=== PATIENT | female | born 2005 | race Caucasian/White ===

== ENCOUNTER 2025-04-13 15:06 | Observation (INO) | payer BC, SELFPAY ==
[2025-04-13] VITALS (14 sets, daily range): BP systolic 122–134; BP diastolic 76–89; PULSE 92–117; RESP 18–98; TEMP 37.1; O2SAT 90–99; BMI 29.0
--- NOTE | 2025-04-13 15:29 | XR_ITS ---
Examination: Complete OB ultrasound greater than 14 weeks Date and time of exam: April 13, 2025 1618 hours INDICATIONS: Pelvic pain and leaking amniotic fluid beginning 3 days ago Findings: Viable intrauterine single fetus with single amniotic sac presentation cephalic Cardiac motion 141 BPM Placenta anterior grade 2 Umbilical cord insertion 3 vessel seen Amniotic fluid index 12.4 cm spine maternal right Cervix 3.5 cm Ovaries obscured by bowel gas. Composite estimated gestational age based on BPD, head circumference, abdominal circumference, femur length is 32 weeks 5 days Estimated weight 1870 g. Survey of intracranial anatomy, spinal anatomy, abdominal anatomy, four-chamber heart performed with no abnormalities identified. Impression: Viable intrauterine gestation cephalic presentation.
[2025-04-13 15:43] LABS: ROM Kit Exp Date# 041527; ROM Kit Lot # 58102387; ROM Swab Mixed By: CL; Swb Mxed in Solvent 1 min? Yes
[2025-04-13 15:44] LABS: Rupture of Fetal Membranes Negative (Negative)
[2025-04-13 15:45] LABS: Bacteria,Urine Rare; Bilirubin,Urine Negative (Negative); Blood,Urine Negative (Negative); Collection Type, Urine Clean Catch; Color,Urine Lt-Yellow (Lt Yel-Yel); Culture Indicated,Urine Not Indicated; Glucose, Urine Negative (Negative); Ketones,Urine Negative (Negative); Leukocyte Esterase,Urine Positive (Negative); Nitrite,Urine Negative (Negative); PH,Urine 7.0 (5.0-7.0); Protein,Urine Negative (Neg - Trace); RBC,Urine 1 /hpf (0-3); Specific Gravity,Urine 1.001 (1.001-1.035); Squamous Epithelial Cell,Urine < 1 /hpf (0-5); Urobilinogen,Urine Negative mg/dL (0.0-1.0); WBC,Urine 1 /hpf (0-5)
[2025-04-13 15:58] LABS: Clarity,Urine Hazy (Clear/Hazy)
[2025-04-14 10:39] LABS: BVAG Candida Positive (Negative); Bacterial Vaginosis Markers Negative (Negative); Candida glabrata Negative (Negative); Candida krusei PCR Negative (Negative); Trichomonas Negative (Negative)
== END 2025-04-13 17:15 | disposition home or self-care (01) ==
PROVIDERS: Admitting Provider Obstetrics & Gynecology; Visit Provider Obstetrics & Gynecology
DX: Z34.03 Encounter for supervision of normal first pregnancy, third trimester (principal); Z3A.33 33 weeks gestation of pregnancy
CPT/HCPCS: 59025; 59899; 76805; 81001; 81514; 84112

== ENCOUNTER 2025-06-06 08:25 | Observation (INO) | payer BC, SELFPAY ==
[2025-06-06] VITALS (7 sets, daily range): BP systolic 123; BP diastolic 74; PULSE 95–109; RESP 20–98; TEMP 36.5; O2SAT 96–98; BMI 31.5
== END 2025-06-06 09:15 | disposition home or self-care (01) ==
PROVIDERS: Admitting Provider Specialist; Visit Provider Specialist
DX: O47.1 False labor at or after 37 completed weeks of gestation (principal); O46.93 Antepartum hemorrhage, unspecified, third trimester; Z3A.40 40 weeks gestation of pregnancy
CPT/HCPCS: 59025; 59899

== ENCOUNTER 2025-06-07 14:15 | Inpatient (IN) | payer BC, MEDICAID, SELFPAY ==
[2025-06-07] VITALS (77 sets, daily range): BP systolic 106–140; BP diastolic 58–89; PULSE 94–249; RESP 20–98; O2SAT 64–100; BMI 30.9
--- NOTE | 2025-06-07 08:16 | ESHP_ITS ---
RE: BECCA SALDANA : 2005 DATE OF ADMISSION: 06/07/2025 HISTORY OF PRESENT ILLNESS: This is a 20-year-old 1, para 0 with due date of 05/31 with intrauterine at 41 weeks on 06/07. She reports regular contractions. She denies any leaking or bleeding. She reports normal movement. MEDICATIONS: 1. multivitamin. 2. Flonase nasal spray p.r.n. allergies SOCIAL HISTORY: She denies any alcohol, drug use, or smoking. PAST MEDICAL HISTORY: Allergic rhinitis. FAMILY HISTORY: Denies. PAST SURGICAL HISTORY: Denies. ALLERGIES: NO KNOWN DRUG ALLERGIES. REVIEW OF SYSTEMS: She denies any chest pain, palpitations, cough, fever, shortness of breath, or lower extremity pain. She denies any headache, change in vision or right upper quadrant pain. PHYSICAL EXAMINATION: VITAL SIGNS: Blood pressure is 110/70, heart rate 88, respirations 18, temperature 98.8. HEENT: Oropharynx and sclerae are clear. LUNGS: Clear to auscultation bilaterally. HEART: Regular rate and rhythm. ABDOMEN: Gravid, term size consistent with estimated weight 8 pounds. PELVIC: See RN notes. EXTREMITIES: Nontender. SKIN: No gross rashes or lesions. NEUROLOGIC: No focal deficit. ASSESSMENT AND PLAN: Intrauterine at 41 weeks and 0 days on 06/07. Early labor Anticipate spontaneous vaginal delivery. DT: 11:24:17 TT: 12:36:00 Ref: [id number] - TID: [id number] [facility]
[2025-06-07] MEDS: RINGERS LACTATED 1000 ML 1,000 ML 100 ML IV ×3 (15:38→22:40)
[2025-06-07 16:07] LABS: Basophils # (Auto) 0.1 Thou/mm3 (0.0-0.2); Basophils % (Auto) 0 % (0-2.5); Eosinophils # (Auto) 0.3 Thou/mm3 (0.0-0.5); Eosinophils % (Auto) 2 % (0-10); Hematocrit 40.8 % (36.0-46.0); Hemoglobin 14.2 g/dL (12.0-16.0); Immature Granulocytes Auto 0.09 Thou/mm3 (0.00-0.00); Lymphocytes # (Auto) 1.8 Thou/mm3 (1.0-4.8); Lymphocytes % (Auto) 10 % (10-50); Mean Corpuscular HGB Conc 34.8 g/dl (31.0-37.0); Mean Corpuscular Hemoglobin 31.0 pg (25.0-35.0); Mean Corpuscular Volume 89 fL (80-100); Monocytes # (Auto) 0.9 Thou/mm3 (0.0-0.8); Monocytes % (Auto) 5 % (0-12); Neutrophils # (Auto) 14.5 Thou/mm3 (1.8-7.7); Neutrophils % (Auto) 82 % (37-80); Nucleated Red Blood Cell # 0.00 Thou/mm3 (0.00-0.00); Nucleated Red Blood Cell % 0 /100 WBC (0); Platelet Count 173 Thou/mm3 (140-440); RDW Standard Deviation 41.1 fL (36.4-46.3); Red Blood Count 4.58 Miln/mm3 (4.00-5.20); White Blood Count 17.6 Thou/mm3 (4.5-11.0)
[2025-06-07 16:49] LABS: Syphilis Nonreactive (Nonreactive)
[2025-06-08] VITALS (124 sets, daily range): BP systolic 96–178; BP diastolic 46–131; PULSE 88–138; RESP 16–18; TEMP 36.4–37.1; O2SAT 94–99
[2025-06-08] MEDS: RINGERS LACTATED 1000 ML 1,000 ML 100 ML IV (04:06)
[2025-06-08] MEDS: MINERAL OIL 30 ML UDC TOP (05:58)
[2025-06-08] MEDS: BENZO/LANO/ALOE (Dermoplast) 60 GM CAN 1 SPRAY TOP (05:59)
[2025-06-08] MEDS: OXYTOCIN in NS 20 units 20 UNIT/1,000 ML BAG 125 UNIT IV (06:09)
[2025-06-08] MEDS: IBUPROFEN TAB 400 MG TABLET 800 MG PO (06:22)
--- NOTE | 2025-06-08 06:33 | PD.LDDS ---
DS: Providers Provider Date of admission: 06/07/25 15:04 Primary care physician: Carlos Alberto Schumacher MD Admitting Provider: Torey Gonzalez MD Attending Provider on Admission: Torey Gonzalez MD Attending Provider on DC: Torey Gonzalez MD Discharging Provider: Torey Gonzalez MD DS: Diagnosis Problem List Completed Was Problem List Reviewed/Reconciled?: Yes Summary/Hosp Course Peripartum Data Delivery Method: Normal Vaginal Delivery Episiotomy Description: None Time Spent with Patient Time attestation: Total time spent providing and/or coordinating discharge services: Exam Vital Signs Temp Pulse Resp BP Pulse Ox O2 Del Method 98.3 F 122 H 16 116/80 99 Room Air 06/08/25 00:59 06/08/25 05:25 06/08/25 00:59 06/08/25 05:25 06/08/25 05:53 06/08/25 00:59 Discharge Plan Plan Patient Disposition: HOME (Self Care) Patient condition on transfer: Stable Prescriptions/Referrals Prescriptions/Med Rec: New amoxicillin-pot clavulanate 875-125 mg tablet 1 tab PO Q12H Qty: 10 0RF ibuprofen 600 mg tablet 600 mg PO Q6H PRN (Reason: fever or pain) Qty: 30 0RF Continued vitamin no.45-iron-FA 28 mg iron- 1 mg tablet,chewable 1 tab PO .QD Referrals: Carlos Alberto Schumacher MD [Primary Care Provider, Family Practice] Patient/Caregiver Discharge Instructions Discharge Activity: activity as tolerated Other Discharge Activity Instructions:: Follow up office 6 weeks. Print Language: Kittitian Stand Alone Forms: [facility] Award Info., Patient Portal Info Letter Discharge Order Discharge Orders: Discharge (Routine); Ordered 06/10/25 Ordered By: Torey Gonzalez Planned Discharge Date 06/10/25
--- NOTE | 2025-06-08 08:00 | PC.NURSE ---
RN attempted to get up pt, pt unable to bare weight on either side, pt assisted to get back in bed RN will attempt to get pt up to restroom again in 30-45 minutes.
--- NOTE | 2025-06-08 09:10 | PC.NURSE ---
Pt transferred to in stedy, pt feeling light headed and dizzy on the way to room. Pt fainted when arriving to room 463, Iris Wallace RN called out for help, Amari Ramirez RN can to room and assisted with getting pt in bed. O2 masks on, Pt vitals checked all WNL, blood sugar 126, pt now talking to RN and feeling better.
[2025-06-08 12:10] LABS: Basophils # (Auto) 0.1 Thou/mm3 (0.0-0.2); Basophils % (Auto) 0 % (0-2.5); Eosinophils # (Auto) 0.1 Thou/mm3 (0.0-0.5); Eosinophils % (Auto) 0 % (0-10); Hematocrit 35.4 % (36.0-46.0); Hemoglobin 12.3 g/dL (12.0-16.0); Immature Granulocytes Auto 0.16 Thou/mm3 (0.00-0.00); Lymphocytes # (Auto) 1.0 Thou/mm3 (1.0-4.8); Lymphocytes % (Auto) 4 % (10-50); Mean Corpuscular HGB Conc 34.7 g/dl (31.0-37.0); Mean Corpuscular Hemoglobin 31.1 pg (25.0-35.0); Mean Corpuscular Volume 90 fL (80-100); Monocytes # (Auto) 0.9 Thou/mm3 (0.0-0.8); Monocytes % (Auto) 4 % (0-12); Neutrophils # (Auto) 21.1 Thou/mm3 (1.8-7.7); Neutrophils % (Auto) 91 % (37-80); Nucleated Red Blood Cell # 0.00 Thou/mm3 (0.00-0.00); Nucleated Red Blood Cell % 0 /100 WBC (0); Platelet Count 189 Thou/mm3 (140-440); RDW Standard Deviation 41.3 fL (36.4-46.3); Red Blood Count 3.95 Miln/mm3 (4.00-5.20); White Blood Count 23.2 Thou/mm3 (4.5-11.0)
--- NOTE | 2025-06-08 12:27 | PD.LDDELS ---
Data (Marquez) Data Hx Section: No : 1 Term: 0 : 0 Livin Abortions: Spontaneous & Theraputic: 0 Delivery Data (Marquez) Labor Data Initiation of labor: Spontaneous Induction/Augmentation Agent: None ROM date: 06/08/25 ROM time: 02:48 Amniotic membrane rupture type: Spontaneous Amniotic fluid description: Clear and Blood Tinged Delivery Data EDC: 05/31/25 EDC calculated by:: LMP/early US confirmation Onset of labor date: 06/07/25 Onset of labor time: 21:49 Complete dilation date: 06/08/25 Complete dilation time: 05:10 [place] delivery date: 06/08/25 delivery time: 05:54 Gestational age (weeks): 41 Gestational age (days): 1 Stage 1 total time: Labor - Stage 1 Duration 7 hours and 21 minutes Delivered by: geiling Delivery nurse: Jose L STEPHENS RN [place] nurse: DALJIT BERRIOS RN Data Communications Engineer at delivery: No Support person(s) at delivery: FATHER OF BABY GRANDMOTHER OF BABY Delivery Method Delivery method: Normal Vaginal Delivery Presentation: Vertex position: OA Anesthesia Type Anesthesia Type: Epidural Placenta Placenta delivery description: Spontaneous Cord blood sent to lab: Yes cord blood collection: Cord Blood Type Episiotomy Episiotomy description: None Lacerations #1: Perineal: 2nd degree Vaginal: 2nd degree Labial: 2nd Degree Perineal repair Sutures used for repair: 3.0 Chromic EBL Estimated blood loss (ml): 150 Umbilical Cord cord description: 3 Vessels Additional Procedures None Complications Complications: None [place] Data (Marquez) [place] Data order: 1 [place]'s gender: Female Identification band number: [id number] weight (gms): 7 lb 1.582 oz Weight (pounds): 7 lbs and 1.6 ozs 1 minute: 8 5 minutes: 9
[2025-06-08] MEDS: AMPICILLIN/SULBAC INJ 3 GM in SODIUM CHLORIDE 0.9% (POP) 100 ML IV ×3 (12:43→23:29)
--- NOTE | 2025-06-08 13:41 | PD.LDPPPRG ---
Subjective Subjective Interval history: Remains afebrile but white blood cell count greater than 20,000 Exam Vital Signs Temp Pulse Resp BP Pulse Ox O2 Del Method 98.0 F 98 17 96/60 98 Room Air 06/08/25 11:05 06/08/25 11:05 06/08/25 11:05 06/08/25 11:05 06/08/25 11:05 06/08/25 11:05 Objective Labs 06/08/25 11:55 Labs: Laboratory Results - last 24 hr 06/07/25 06/08/25 15:20 11:55 WBC 17.6 H 23.2 H D RBC 4.58 3.95 L Hgb 14.2 12.3 Hct 40.8 35.4 L MCV 89 90 MCH 31.0 31.1 MCHC 34.8 34.7 RDW Std Deviation 41.1 41.3 Plt Count 173 189 Neut % (Auto) 82 H 91 H Lymph % (Auto) 10 4 L [place] % (Auto) 5 4 Eos % (Auto) 2 0 Baso % (Auto) 0 0 Neut # (Auto) 14.5 H 21.1 H Lymph # (Auto) 1.8 1.0 [place] # (Auto) 0.9 H 0.9 H Eos # (Auto) 0.3 0.1 Baso # (Auto) 0.1 0.1 Immature Gran # (Auto) 0.09 H 0.16 H Absolute Nucleated RBC 0.00 0.00 Immature Gran % 1 H 1 H Nucleated RBC % 0 0 Syphilis Serology Nonreactive Blood Type A Positive Antibody Screen NEGATIVE Blood Bank Wristband ID Yes Impressions Impression: endometritis Unasyn and gentamicin Repeat CBC at 0500 Discussed with patient the recommended treatment plan all questions answered Assessment & Plan Time Spent With Patient Time: Total time spent is greater than 50% in coordination of care (as documented) at patient's floor/unit and/or counseling patient:
[2025-06-08] MEDS: DOCUSATE SOD 100 MG CAPSULE PO (14:50)
[2025-06-08] MEDS: SIMETHICONE 80 MG CHEW PO (14:50)
[2025-06-09] VITALS: BP 106/72; PULSE 95; RESP 16; TEMP 36.9; O2SAT 97
[2025-06-09] MEDS: IBUPROFEN TAB 400 MG TABLET 800 MG PO (00:15)
[2025-06-09 04:00] VITALS: BP 114/76; PULSE 93; RESP 18; TEMP 36.6; O2SAT 98
[2025-06-09 05:33] LABS: Basophils # (Auto) 0.1 Thou/mm3 (0.0-0.2); Basophils % (Auto) 1 % (0-2.5); Eosinophils # (Auto) 0.4 Thou/mm3 (0.0-0.5); Eosinophils % (Auto) 3 % (0-10); Hematocrit 34.5 % (36.0-46.0); Hemoglobin 12.0 g/dL (12.0-16.0); Immature Granulocytes Auto 0.09 Thou/mm3 (0.00-0.00); Lymphocytes # (Auto) 2.7 Thou/mm3 (1.0-4.8); Lymphocytes % (Auto) 16 % (10-50); Mean Corpuscular HGB Conc 34.8 g/dl (31.0-37.0); Mean Corpuscular Hemoglobin 31.7 pg (25.0-35.0); Mean Corpuscular Volume 91 fL (80-100); Monocytes # (Auto) 0.8 Thou/mm3 (0.0-0.8); Monocytes % (Auto) 5 % (0-12); Neutrophils # (Auto) 12.5 Thou/mm3 (1.8-7.7); Neutrophils % (Auto) 75 % (37-80); Nucleated Red Blood Cell # 0.00 Thou/mm3 (0.00-0.00); Nucleated Red Blood Cell % 0 /100 WBC (0); Platelet Count 172 Thou/mm3 (140-440); RDW Standard Deviation 42.1 fL (36.4-46.3); Red Blood Count 3.78 Miln/mm3 (4.00-5.20); White Blood Count 16.7 Thou/mm3 (4.5-11.0)
[2025-06-09] MEDS: AMPICILLIN/SULBAC INJ 3 GM in SODIUM CHLORIDE 0.9% (POP) 100 ML IV ×3 (05:36→17:55)
--- NOTE | 2025-06-09 06:10 | ESPR_ITS ---
RE: BECCA SALDANA : 2005 DATE OF SERVICE: 06/09/2025 SUBJECTIVE: day #1, the patient reports that her IV infiltrated in the night. She denies any nausea or vomiting. She is tolerating regular diet. She is voiding and ambulating and passing flatus. She denies any chest pain, palpitations, shortness of breath or lower extremity pain. OBJECTIVE: Vital Signs: Blood pressure 114/76, heart rate 93, respirations 18, temperature 97.9, pulse oximetry is 98% on room air. Lungs: Clear to auscultation bilaterally. Heart: Regular rate and rhythm. Flank: No CVA tenderness. Abdomen: Fundus is firm and nontender. Extremities: Nontender. LABORATORY DATA: Hemoglobin predelivery is 14.2, post-delivery is 12.3, white blood cell count 23,000. CBC pending for this morning. ASSESSMENT: 1. day #1, status post spontaneous vaginal delivery. 2. endometritis. PLAN: Continue Unasyn and gentamicin. Possible discharge home tomorrow. DT: 05:49:14 TT: 06:09:00 Ref: [id number] - TID: [id number]
[2025-06-09 07:32] VITALS: BP 99/66; PULSE 86; RESP 16; TEMP 37; O2SAT 97
[2025-06-09 12:41] VITALS: BP 115/78; PULSE 95; RESP 16; TEMP 36.6; O2SAT 98
[2025-06-09 16:40] VITALS: BP 119/81; PULSE 93; RESP 16; TEMP 36.6; O2SAT 97
[2025-06-09 19:50] VITALS: BP 101/68; PULSE 79; RESP 16; TEMP 36.6; O2SAT 98
[2025-06-10] VITALS: BP 122/87; PULSE 90; RESP 16; TEMP 36.8; O2SAT 98
[2025-06-10] MEDS: AMPICILLIN/SULBAC INJ 3 GM in SODIUM CHLORIDE 0.9% (POP) 100 ML IV ×2 (00:11→05:55)
[2025-06-10 03:55] VITALS: BP 106/72; PULSE 87; RESP 18; TEMP 36.9; O2SAT 98
[2025-06-10] MEDS: BENZO/LANO/ALOE (Dermoplast) 60 GM CAN 1 SPRAY TOP (04:43)
[2025-06-10 06:04] LABS: Basophils # (Auto) 0.1 Thou/mm3 (0.0-0.2); Basophils % (Auto) 1 % (0-2.5); Eosinophils # (Auto) 0.4 Thou/mm3 (0.0-0.5); Eosinophils % (Auto) 3 % (0-10); Hematocrit 38.0 % (36.0-46.0); Hemoglobin 13.0 g/dL (12.0-16.0); Immature Granulocytes Auto 0.09 Thou/mm3 (0.00-0.00); Lymphocytes # (Auto) 2.2 Thou/mm3 (1.0-4.8); Lymphocytes % (Auto) 15 % (10-50); Mean Corpuscular HGB Conc 34.2 g/dl (31.0-37.0); Mean Corpuscular Hemoglobin 31.1 pg (25.0-35.0); Mean Corpuscular Volume 91 fL (80-100); Monocytes # (Auto) 0.7 Thou/mm3 (0.0-0.8); Monocytes % (Auto) 5 % (0-12); Neutrophils # (Auto) 11.1 Thou/mm3 (1.8-7.7); Neutrophils % (Auto) 76 % (37-80); Nucleated Red Blood Cell # 0.00 Thou/mm3 (0.00-0.00); Nucleated Red Blood Cell % 0 /100 WBC (0); Platelet Count 198 Thou/mm3 (140-440); RDW Standard Deviation 41.3 fL (36.4-46.3); Red Blood Count 4.18 Miln/mm3 (4.00-5.20); White Blood Count 14.5 Thou/mm3 (4.5-11.0)
--- NOTE | 2025-06-10 07:17 | ESPR_ITS ---
RE: BECCA SALDANA : 2005 DATE OF SERVICE: 06/10/2025 SUBJECTIVE: day 2. The patient denies any problems or complaints. She is voiding. She is ambulating. She is tolerating diet. She is passing flatus. She denies any excessive vaginal bleeding. She denies any dizziness or lightheadedness. She denies any chest pain, palpitations, shortness of breath or lower extremity pain. She denies any vaginal itching or diarrhea. OBJECTIVE: Vital Signs: Blood pressure 106/72, heart rate 87, respirations 18, temperature is 98.4, pulse ox is 98% on room air. Lungs: Clear to auscultation bilaterally. Heart: Regular rate and rhythm. Abdomen: Fundus is firm, nontender. Extremities: Nontender. LABORATORY DATA: White blood cell count is 14.5 and trending down. ASSESSMENT: 1. day 2. 2. Status post spontaneous vaginal delivery and endometritis. PLAN: Discharge home on Augmentin for 5 days. Discharge instructions given. Follow up in the office in 6 weeks. DT: 06:54:39 TT: 07:15:00 Ref: [id number] - TID: [id number]
[2025-06-10 08:15] VITALS: BP 118/85; PULSE 83; RESP 17; TEMP 36.9
--- NOTE | 2025-06-10 08:30 | PC.LAC ---
Mom states that she is doing much better with latch and baby is doing really good at feedings. She states that she is no longer having pain and feels her milk has increased. Asked for more syringes and spoons. She did have questions as to how to tell if baby was getting enough milk. Went through signs of satiation as well as feeding cues.
[2025-06-10] MEDS: DOCUSATE SOD 100 MG CAPSULE PO (08:44)
[2025-06-10] MEDS: IBUPROFEN TAB 400 MG TABLET 800 MG PO (11:50)
== END 2025-06-10 12:25 | disposition home or self-care (01) | DRG 806 ==
LOC: S4SX 06-08 08:29 → S4NX 06-08 09:12
PROVIDERS: Admitting Provider Specialist; PCP Family Medicine; Visit Provider Specialist
DX: O48.0 Post-term pregnancy (principal); O86.12 Endometritis following delivery; Z37.0 Single live birth; Z3A.41 41 weeks gestation of pregnancy; O70.1 Second degree perineal laceration during delivery
CPT/HCPCS: 36415; 59025; 85025; 86780; 86850; 86900; 86901; J0295; J1580; J2590; J2795; J3010; J7050; J7120; A9270